=== PATIENT | female | born 1955 | race African-American/Black ===

== ENCOUNTER 2016-07-20 16:50 | Inpatient (IN) | payer OTHER ==
[~2016-07-20] VITALS: Ht 175.3 cm; Wt 80.2 kg
[2016-07-22] MEDS ORDERED: ATEN50TA PO (12:40)
[2016-07-22] MEDS ORDERED: SERO25TA PO (12:40)
[2016-07-22] MEDS ORDERED: VIST25CA PO (12:40)
[2016-07-22] MEDS ORDERED: MULTTAB67 PO (12:40)
[2016-07-22] MEDS ORDERED: HYDR-3516 PO (12:40)
[2016-07-22] MEDS ORDERED: B12-1CHW CHEW (12:40)
[2016-07-22] MEDS ORDERED: DICL75TA PO (12:40)
[2016-07-22] MEDS ORDERED: NEUR300C PO (12:40)
[2016-07-22] MEDS ORDERED: NEUR600T PO (12:40)
[2016-07-25] MEDS ORDERED: ROPIVACAINE 0.5% PF INJ 30 ML VIAL NB ONE (08:41)
[2016-07-25] MEDS ORDERED: VANCOMYCIN 1000 MG/NS 250 ML (for <70 kg) IV SCH ×2 (10:30)
[2016-07-25] MEDS ORDERED: TRANEXAMIC ACID 1 GM POST-OP IV SCH ×2 (10:30)
[2016-07-25] MEDS ORDERED: TRANEXAMIC ACID 1 GM PRIOR TO PROCEDURE IV SCH ×2 (10:30)
[2016-07-25] MEDS ORDERED: CHLORHEXIDINE GLUCONATE 4% SOLN 120 ML BTL TOP SCH (10:30)
[2016-07-25] MEDS ORDERED: ceFAZolin 2 GM PREMIX 50 ML IV SCH (10:30)
[2016-07-25 10:42] VITALS: BP 160/94; PULSE 65; RESP 20; TEMP 98; O2SAT 100
[2016-07-25 10:54] LABS: BLOOD, URINE NEG (NEG); COMMENT (UR) CATH-CULT NOT IND; CULTURE IF INDICATED CATH CULTURE NOT IND; GLUCOSE,URINE NEG (NEG); KETONE, URINE NEG (NEG); NITRITE,URINE NEG (NEG); PH, URINE 6.5 (5.0-8.5); SQUAMOUS EPITHELIAL CELL URINE <1 /hpf (0-5); TRANSITIONAL EPI CELLS, URINE <1 /hpf; URINE COLOR LIGHT-YELLOW (YELLW/STRAW)
[2016-07-25] MEDS ORDERED: INSULIN HUMAN REGULAR 1,000 UNITS/10 ML VIAL SQ PRN (11:00)
[2016-07-25] MEDS ORDERED: SODIUM CHLORID 0.9% 500 ML IV SCH (11:00)
[2016-07-25] MEDS ORDERED: METOPROLOL TARTRATE 25 MG TAB PO PRN (11:00)
[2016-07-25] MEDS ORDERED: LACTATED RINGER'S 1000 ML IV SCH (11:00)
--- NOTE | 2016-07-25 11:26 | RADRPT ---
EXAM DATE/TIME: 07/25/2016 10:19 [facility] COMPARISON: No previous studies available for comparison. INDICATIONS : Evaluate for pneumonia, pneumothorax or communicable disease. pre op for right knee surgery today. MEDICAL HISTORY : None. SURGICAL HISTORY : None. ENCOUNTER: Initial ACUITY: 1 day PAIN SCORE: 0/10 LOCATION: Bilateral chest FINDINGS: A single view of the chest demonstrates the lungs to be symmetrically aerated without evidence of mas s, infiltrate or effusion. The cardiomediastinal contours are unremarkable. Osseous structures are intact. CONCLUSION: No acute disease. Kali Wynn MD FACR on July 25, 2016 at 11:25 Board Certified Radiologist. This report was verified electronically.
[2016-07-25] MEDS ORDERED: GENTAMICIN SULFATE 80 MG/2 ML VIAL ONE (11:55)
[2016-07-25] MEDS ORDERED: MIDAZOLAM HCL 2 MG/2 ML VIAL ONE (12:20)
[2016-07-25] MEDS ORDERED: FAMOTIDINE 20 MG/2 ML VIAL ONE (12:20)
[2016-07-25] MEDS ORDERED: DEXAMETHASONE SOD PHOS 4 MG/ML VIAL ONE (12:21)
[2016-07-25] MEDS ORDERED: LACTATED RINGER'S 1000 ML INJ 1,000 ML IV ONE (12:57)
[2016-07-25] MEDS ORDERED: ONDANSETRON HCL 4 MG/2 ML VIAL IV PUSH ONE (12:57)
[2016-07-25] MEDS ORDERED: PROPOFOL 200 MG/20 ML AMP IV ONE (12:57)
[2016-07-25] MEDS ORDERED: NEOSTIGMINE 3 MG/3 ML SYR IV ONE (12:57)
--- NOTE | 2016-07-25 15:14 | PD.OP ---
Operative Report Preoperative Diagnosis: (1) Osteoarthritis of right knee Postoperative Diagnosis: (1) Osteoarthritis of right knee Procedure: Right Total Knee Arthroplasty Anesthesia: General and Regional Block Surgeon: Maxx Ortiz MD Mental Health Program Manager(s): Finesse HORN Operation and Findings: see dictation Maxx Ortiz MD Jul 25, 2016 15:14
[2016-07-25] MEDS ORDERED: ONDANSETRON HCL 4 MG/2 ML VIAL IVP PRN (15:15)
[2016-07-25] MEDS ORDERED: ALUMINUM/MAGNESIUM/SIMETH 30 ML CUP PO PRN (15:15)
[2016-07-25] MEDS ORDERED: Post-op Orders (for Pharmacy) MISC XX ONE (15:15)
[2016-07-25] MEDS ORDERED: BISACODYL 10 MG SUPP PR PRN (15:15)
[2016-07-25] MEDS ORDERED: oxyCODONE/ACETAMINOPHEN 5 MG/325 MG TAB PO PRN (15:15)
[2016-07-25] MEDS: PCA - TOTAL MG DILAUDID DELIVERED PER SHIFT OTHER SCH ×2 (15:15→21:50)
[2016-07-25] MEDS ORDERED: SODIUM CHLORIDE 0.9% FLUSH 5 ML FLUSH IVF PRN (15:15)
[2016-07-25] MEDS ORDERED: MISCELLANEOUS PHARMACY INFORMATION XX ONE (15:15)
[2016-07-25] MEDS ORDERED: NALOXONE HCL 0.4 MG/ML AMP IV PRN (15:15)
[2016-07-25] MEDS ORDERED: MISCELLANEOUS NURSING INFORMATION XX PRN (15:15)
[2016-07-25] MEDS ORDERED: *RESP: ALBUTEROL 2.5 MG/3 ML NEB (PRN) PERIprocedural Use ONLY NEB ONE (15:31)
[2016-07-25] MEDS ORDERED: *morphine SULFATE 8 MG/ML PERIprocedure ONLY ONE ×2 (15:38→16:08)
[2016-07-25] MEDS ORDERED: *LABETALOL HCL 100 MG/20 ML VIAL PERIprocedural Use ONLY ONE (15:38)
[2016-07-25] MEDS ORDERED: MORPHINE SULFATE 4 MG/ML INJ ONE (15:39)
[2016-07-25] MEDS ORDERED: fentaNYL CITRATE 250 MCG/5 ML AMP ONE (15:39)
[2016-07-25] MEDS ORDERED: DO NOT ADM ANY ANTICOAGULANT DRUGS XX PRN (15:45)
[2016-07-25] MEDS: HYDROmorphone HCL PCA 6 MG/30 ML IV SCH ×2 (15:50→18:12)
--- NOTE | 2016-07-25 15:57 | RADRPT ---
EXAM DATE/TIME: 07/25/2016 15:32 [facility] COMPARISON: CHEST SINGLE AP, July 25, 2016, 10:19. INDICATIONS : Post op right knee. MEDICAL HISTORY : None. SURGICAL HISTORY : None. ENCOUNTER: Initial ACUITY: 1 day PAIN SCORE: Non-responsive. LOCATION: Right knee FINDINGS: The patient is post right knee arthroplasty. No joint effusion is seen. No complication is evident. The hardware is in excellent position. CONCLUSION: Uncomplicated right knee arthroplasty. Candido Wynn MD on July 25, 2016 at 15:55 Board Certified Radiologist. This report was verified electronically.
[2016-07-25] MEDS ORDERED: *ENALAPRILAT 1.25 MG/ML VIAL PERIprocedural Use ONLY ONE ×2 (15:59→16:33)
[2016-07-25] MEDS: LACTATED RINGER'S 1000 ML INJ 1,000 ML IV SCH (16:04)
--- NOTE | 2016-07-25 16:58 | PD.CONS ---
[facility] By Dr. Ortiz Reason for Consult Medical Management Primary Care Physician Lucero Whitaker MD Diagnoses: (1) Osteoarthritis of right knee (2) Hypertension History of Present Illness The patient is a 61 year old female seen in PACU following right total knee arthroplasty. She reports significant pain in her right knee and also pain in her left knee. No other complaints at this time. Had a headache yesterday. No vision changes. Denies chest pain, dyspnea. Review of Systems Constitutional: DENIES: Fever, Chills, Night Sweats Eyes: DENIES: Blurred vision, Vision loss Ears, nose, mouth, throat: DENIES: Hearing loss Respiratory: DENIES: Cough, Wheezing, Sputum production, Shortness of breath Cardiovascular: DENIES: Chest pain, Palpitations, Dyspnea on Exertion, Lower Extremity Edema Gastrointestinal: DENIES: Abdominal pain, Constipation, Diarrhea, Nausea, Vomiting Genitourinary: DENIES: Urinary frequency, Urinary incontinence, Urgency, Hematuria, Dysuria, Nocturia Musculoskeletal: COMPLAINS OF: Joint pain, DENIES: Muscle aches Integumentary: DENIES: Pruritus, Rash Hematologic/lymphatic: DENIES: Bruising Neurologic: COMPLAINS OF: Headache Past Family Social History Allergies: Coded Allergies: No Known Allergies (Unverified , 07/25/16) Past Medical History Hypertension Arthritis Past Surgical History Hysterectomy Reported Medications See list Family History Hypertension Social History Smokes 1/2 ppd. Denies alcohol or illicit drug use. Physical Exam Vital Signs Vital Signs Date Time Temp Pulse Resp B/P Pulse Ox O2 Delivery O2 Flow Rate FiO2 07/25/16 16:45 82 14 168/98 94 Nasal Cannula 4 07/25/16 16:30 82 12 190/99 95 Nasal Cannula 4 07/25/16 16:15 83 16 173/94 95 Nasal Cannula 4 07/25/16 16:00 95 15 212/108 96 Nasal Cannula 4 07/25/16 15:50 15 07/25/16 15:45 81 16 188/102 95 Nasal Cannula 4 07/25/16 15:30 85 14 198/113 86 Nasal Cannula 4 07/25/16 15:26 98.5 82 15 188/112 84 Nasal Cannula 2 07/25/16 10:42 98.0 65 20 160/94 100 Physical Exam GENERAL: Well-nourished, well-developed female in no acute distress. Appears uncomfortable. HEENT: Normocephalic, atraumatic. Pupils equal, round and reactive. Extraocular movements intact. No scleral icterus. No injection or drainage. Oropharynx is clear. Mucous membranes are somewhat dry. CARDIOVASCULAR: Regular rate and rhythm without murmurs, gallops, or rubs. RESPIRATORY: Clear to auscultation. No wheezes, rales, or rhonchi. Breathing is non-labored. GASTROINTESTINAL: Abdomen soft, non-tender, nondistended. EXTREMITIES: No lower extremity edema. No calf tenderness. JOSE hose. Right leg in CPM machine. PSYCH: Alert and oriented x 3. Laboratory Laboratory Tests Test 07/25/16 07/25/16 10:25 10:40 Urine Color LIGHT-YELLOW Urine Turbidity CLEAR Urine pH 6.5 Urine Specific Switzer 1.006 Urine Protein NEG Urine Glucose (UA) NEG Urine Ketones NEG Urine Occult Blood NEG Urine Nitrite NEG Urine Bilirubin NEG Urine Urobilinogen LESS THAN 2.0 Urine Leukocyte Esterase MOD Urine RBC 1 Urine WBC 4 Urine Squamous Epithelial <1 Cells Urine Transitional Epithelial <1 Cells Microscopic Urinalysis Comment CATH-CULT NOT IND Blood Type B POSITIVE Antibody Screen NEGATIVE Blood Bank Comment Imaging Last Impressions Knee X-Ray 07/25/16 0000 Signed Impressions: Service Date/Time: Monday, July 25, 2016 15:32 - CONCLUSION: Uncomplicated right knee arthroplasty. Candido Wynn MD Chest X-Ray 07/25/16 0000 Signed Impressions: Service Date/Time: Monday, July 25, 2016 10:19 - CONCLUSION: No acute disease. Kali Wynn MD FACR Assessment and Plan Assessment and Plan 1. Osteoarthritis: Status post right total knee arthroplasty, POD #0. Management per orthopedic surgery. Continue pain control with Dilaudid CLUTCH MECHANIC. Continue bowel regimen. 2. Hypertension: Blood pressure is significantly elevated, likely secondary to pain. Has received IV Vasotec and IV labetalol. Will add IV hydralazine as needed. Continue atenolol. 3. DVT prophylaxis: Xarelto. Levi Kidd MD Jul 25, 2016 16:58
[2016-07-25] MEDS ORDERED: hydrOXYzine PAMOATE 25 MG CAP PO PRN (17:00)
[2016-07-25] MEDS ORDERED: hydrALAZINE HCL 20 MG/ML VIAL IV PUSH PRN (17:00)
[2016-07-25] MEDS ORDERED: *diphenhydrAMINE HCL 50 MG/ML VIAL PERIprocedural Use ONLY ONE (18:08)
[2016-07-25] MEDS ORDERED: ACETAMINOPHEN 325 MG TAB PO PRN (19:00)
[2016-07-25 19:23] VITALS: BP 134/77; PULSE 89; RESP 18; TEMP 99; O2SAT 99
[2016-07-25] MEDS ORDERED: ZOLPIDEM TARTRATE 5 MG TAB PO PRN (21:00)
[2016-07-25] MEDS: ceFAZolin 2 GM PREMIX 50 ML IV SCH (21:29)
[2016-07-25] MEDS: SODIUM CHLORIDE 0.9% FLUSH 5 ML FLUSH IVF SCH (21:30)
[2016-07-25] MEDS: GABAPENTIN 300 MG CAP PO SCH (21:30)
[2016-07-25 21:40] VITALS: RESP 16
[2016-07-25 23:45] VITALS: BP 105/49; PULSE 83; RESP 17; TEMP 99; O2SAT 97
[2016-07-26] VITALS (7 sets, daily range): BP systolic 125–152; BP diastolic 58–73; PULSE 79–85; RESP 16–18; TEMP 98.7–100.5; O2SAT 94–100
[2016-07-26] MEDS: ceFAZolin 2 GM PREMIX 50 ML IV SCH ×2 (01:49→09:46)
[2016-07-26] MEDS: HYDROmorphone HCL PCA 6 MG/30 ML IV SCH ×3 (02:45→20:08)
[2016-07-26] MEDS: GABAPENTIN 300 MG CAP PO SCH ×2 (04:39→20:08)
[2016-07-26] MEDS: LACTATED RINGER'S 1000 ML INJ 1,000 ML IV SCH ×2 (04:40→17:58)
[2016-07-26] MEDS: PCA - TOTAL MG DILAUDID DELIVERED PER SHIFT OTHER SCH ×3 (05:19→21:53)
[2016-07-26 06:15] LABS: HEMATOCRIT 34.3 % (35.0-46.0); REVIEW FLAG FINAL
--- NOTE | 2016-07-26 07:46 | PD.ORT.PN ---
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, but c/o pain Objective Vitals Vital Signs Date Time Temp Pulse Resp B/P Pulse Ox O2 Delivery O2 Flow Rate FiO2 07/26/16 03:40 98.9 83 17 136/73 100 07/25/16 23:45 99.0 83 17 105/49 97 07/25/16 21:40 16 07/25/16 19:23 99.0 89 18 134/77 99 07/25/16 19:00 93 13 152/77 95 Nasal Cannula 3 07/25/16 18:15 99.1 90 13 142/76 94 Nasal Cannula 3 07/25/16 18:12 15 07/25/16 18:00 85 15 139/81 96 Nasal Cannula 3 07/25/16 17:30 80 13 131/77 97 Nasal Cannula 4 07/25/16 17:00 85 12 180/93 94 Nasal Cannula 4 07/25/16 16:45 82 14 168/98 94 Nasal Cannula 4 07/25/16 16:30 82 12 190/99 95 Nasal Cannula 4 07/25/16 16:15 83 16 173/94 95 Nasal Cannula 4 07/25/16 16:00 95 15 212/108 96 Nasal Cannula 4 07/25/16 15:50 15 07/25/16 15:45 81 16 188/102 95 Nasal Cannula 4 07/25/16 15:30 85 14 198/113 86 Nasal Cannula 4 07/25/16 15:26 98.5 82 15 188/112 84 Nasal Cannula 2 07/25/16 10:42 98.0 65 20 160/94 100 I/O 07/25/16 07/25/16 07/25/16 07/26/16 07/26/16 07/26/16 07:00 15:00 23:00 07:00 15:00 23:00 Intake Total 1740 ml 588 ml 360 ml Output Total 710 ml 105 ml Balance 1030 ml 483 ml 360 ml Intake Oral 280 ml 360 ml IV Total 560 ml 588 ml Other 900 ml Output Urine Total 450 ml Drainage Total 210 ml 105 ml Estimated Blood Loss 50 ml Bladder Scan Volume Amount 658 ml # Voids 1 1 # Bowel Movements 0 0 Result Diagram: 07/26/16 0521 Objective Remarks Right lower extremity dressing and Italo wraps in place calve soft negative david's NVI Assessment & Plan Problem List: (1) Osteoarthritis of right knee (2) History of knee replacement procedure of right knee Assessment and Plan Right Total Knee Arthroplasty POD#1 Pain control Medical consult Physical therapy consult - weight bearing as tolerated DVT prophylaxis - Xarelto Plan for [facility] Maxx Ortiz MD Jul 26, 2016 07:46
[2016-07-26] MEDS: SODIUM CHLORIDE 0.9% FLUSH 5 ML FLUSH IVF SCH ×2 (09:00→20:08)
[2016-07-26] MEDS: MULTIVITAMIN TAB PO SCH (09:42)
[2016-07-26] MEDS: ATENOLOL 50 MG TAB PO SCH (09:42)
[2016-07-26] MEDS: oxyCODONE/ACETAMINOPHEN 5 MG/325 MG TAB PO PRN ×3 (09:45→17:56)
--- NOTE | 2016-07-26 10:16 | HHI.PR ---
Subjective Remarks Follow-up hypertension. Patient states that she is still having quite a bit of pain in the right leg, but less than yesterday. Denies chest pain or dyspnea. Objective Vitals Vital Signs Date Time Temp Pulse Resp B/P Pulse Ox O2 Delivery O2 Flow Rate FiO2 07/26/16 09:54 16 07/26/16 08:00 99.7 82 18 126/58 94 07/26/16 03:40 98.9 83 17 136/73 100 07/25/16 23:45 99.0 83 17 105/49 97 07/25/16 21:40 16 07/25/16 19:23 99.0 89 18 134/77 99 07/25/16 19:00 93 13 152/77 95 Nasal Cannula 3 07/25/16 18:15 99.1 90 13 142/76 94 Nasal Cannula 3 07/25/16 18:12 15 07/25/16 18:00 85 15 139/81 96 Nasal Cannula 3 07/25/16 17:30 80 13 131/77 97 Nasal Cannula 4 07/25/16 17:00 85 12 180/93 94 Nasal Cannula 4 07/25/16 16:45 82 14 168/98 94 Nasal Cannula 4 07/25/16 16:30 82 12 190/99 95 Nasal Cannula 4 07/25/16 16:15 83 16 173/94 95 Nasal Cannula 4 07/25/16 16:00 95 15 212/108 96 Nasal Cannula 4 07/25/16 15:50 15 07/25/16 15:45 81 16 188/102 95 Nasal Cannula 4 07/25/16 15:30 85 14 198/113 86 Nasal Cannula 4 07/25/16 15:26 98.5 82 15 188/112 84 Nasal Cannula 2 07/25/16 10:42 98.0 65 20 160/94 100 I/O 07/25/16 07/25/16 07/25/16 07/26/16 07/26/16 07/26/16 07:00 15:00 23:00 07:00 15:00 23:00 Intake Total 1740 ml 588 ml 360 ml Output Total 710 ml 105 ml Balance 1030 ml 483 ml 360 ml Intake Oral 280 ml 360 ml IV Total 560 ml 588 ml Other 900 ml Output Urine Total 450 ml Drainage Total 210 ml 105 ml Estimated Blood Loss 50 ml Bladder Scan Volume Amount 658 ml # Voids 1 1 # Bowel Movements 0 0 Result Diagram: 07/26/16 0521 Imaging Last Impressions Knee X-Ray 07/25/16 0000 Signed Impressions: Service Date/Time: Monday, July 25, 2016 15:32 - CONCLUSION: Uncomplicated right knee arthroplasty. Candido Wynn MD Chest X-Ray 07/25/16 0000 Signed Impressions: Service Date/Time: Monday, July 25, 2016 10:19 - CONCLUSION: No acute disease. Kali Wynn MD FACR Objective Remarks General: No acute distress. Heart: Regular rate and rhythm. No murmur. Lungs: Clear to auscultation bilaterally. No wheezes, rales, or rhonchi. Breathing is nonlabored. Abdomen: Soft, nontender, nondistended. Extremities: No lower extremity edema. Right leg in an immobilizer brace. Psych: Alert and oriented. Procedures 07/25/16 right total knee arthroplasty Urinary Catheter: No Vascular Central Line Catheter: No A/P Problem List: (1) Osteoarthritis of right knee ICD Code: M17.11 Status: Chronic (2) Hypertension ICD Code: I10 Status: Acute Assessment and Plan 1. Osteoarthritis: Status post right total knee arthroplasty, POD #1. Management per orthopedic surgery. 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 Continue bowel regimen. 2. Hypertension: Blood pressure control is improved. Was likely elevated postoperatively secondary to pain. Continue atenolol. 3. Tobacco abuse: Counseled to quit smoking. 4. DVT prophylaxis: Xarelto. Levi Kidd MD Jul 26, 2016 10:15
[2016-07-26] MEDS: RIVAROXABAN 10 MG TAB PO SCH (14:30)
[2016-07-26] MEDS: MAGNESIUM HYDROXIDE SUSP 30 ML CUP PO PRN (20:08)
[2016-07-26] MEDS: DOCUSATE SODIUM 100 MG CAP PO SCH (20:08)
[2016-07-27] VITALS (7 sets, daily range): BP systolic 129–145; BP diastolic 60–72; PULSE 67–81; RESP 16–17; TEMP 98.4–100; O2SAT 94–98
[2016-07-27] MEDS: LACTATED RINGER'S 1000 ML INJ 1,000 ML IV SCH ×3 (03:42→19:59)
[2016-07-27] MEDS: oxyCODONE/ACETAMINOPHEN 5 MG/325 MG TAB PO PRN ×4 (05:05→18:09)
[2016-07-27] MEDS: GABAPENTIN 300 MG CAP PO SCH ×2 (05:05→19:55)
[2016-07-27] MEDS: PCA - TOTAL MG DILAUDID DELIVERED PER SHIFT OTHER SCH ×2 (06:00→13:47)
[2016-07-27] MEDS: MAGNESIUM HYDROXIDE SUSP 30 ML CUP PO PRN (08:31)
[2016-07-27] MEDS: ATENOLOL 50 MG TAB PO SCH (08:31)
[2016-07-27] MEDS: DOCUSATE SODIUM 100 MG CAP PO SCH ×2 (08:32→19:54)
[2016-07-27] MEDS: MULTIVITAMIN TAB PO SCH (08:32)
[2016-07-27] MEDS: SODIUM CHLORIDE 0.9% FLUSH 5 ML FLUSH IVF SCH ×2 (08:32→19:59)
--- NOTE | 2016-07-27 11:32 | HHI.PR ---
Subjective Remarks Follow up hypertension. Patient states that her pain is well controlled today. Denies chest pain, dyspnea, nausea, vomiting, diarrhea, constipation. Objective Vitals Vital Signs Date Time Temp Pulse Resp B/P Pulse Ox O2 Delivery O2 Flow Rate FiO2 07/27/16 08:10 98.9 81 16 137/67 94 07/27/16 03:30 99.4 80 16 144/66 97 07/26/16 23:45 100.5 85 16 152/67 96 07/26/16 20:00 99.1 79 16 141/62 98 07/26/16 18:29 94 21 07/26/16 16:00 98.7 82 18 125/60 94 07/26/16 14:00 16 07/26/16 12:00 99.1 83 18 130/60 94 I/O 07/26/16 07/26/16 07/26/16 07/27/16 07/27/16 07/27/16 07:00 15:00 23:00 07:00 15:00 23:00 Intake Total 588 ml 1674 ml 1125 ml 697 ml Output Total 105 ml 180 ml 90 ml 100 ml Balance 483 ml 1494 ml 1035 ml 597 ml Intake Oral 840 ml 840 ml 240 ml IV Total 588 ml 834 ml 285 ml 457 ml Drainage Total 105 ml 180 ml 90 ml 100 ml # Voids 3 4 3 # Bowel Movements 0 0 0 Result Diagram: 07/26/16 0521 Imaging Last Impressions Knee X-Ray 07/25/16 0000 Signed Impressions: Service Date/Time: Monday, July 25, 2016 15:32 - CONCLUSION: Uncomplicated right knee arthroplasty. Candido Wynn MD Chest X-Ray 07/25/16 0000 Signed Impressions: Service Date/Time: Monday, July 25, 2016 10:19 - CONCLUSION: No acute disease. Kali Wynn MD FACR Objective Remarks General: No acute distress. Heart: Regular rate and rhythm. No murmur. Lungs: Clear to auscultation bilaterally. No wheezes, rales, or rhonchi. Breathing is nonlabored. Abdomen: Soft, nontender, nondistended. Extremities: No lower extremity edema. Psych: Alert and oriented. Procedures 07/25/16 right total knee arthroplasty Urinary Catheter: No Vascular Central Line Catheter: No A/P Problem List: (1) Osteoarthritis of right knee ICD Code: M17.11 Status: Chronic (2) Hypertension ICD Code: I10 Status: Acute Assessment and Plan 1. Osteoarthritis: Status post right total knee arthroplasty, POD #2. Management per orthopedic surgery. Continue pain control. Continue bowel regimen. 2. Hypertension: Blood pressure control is improved. Was likely elevated postoperatively secondary to pain. Continue atenolol. 3. Tobacco abuse: Counseled to quit smoking. 4. DVT prophylaxis: Xarelto. Discharge Planning Per orthopedic surgery. Levi Kidd MD Jul 27, 2016 11:31
[2016-07-27] MEDS: RIVAROXABAN 10 MG TAB PO SCH (14:00)
--- NOTE | 2016-07-27 18:43 | PD.ORT.PN ---
Subjective Post Op Day #: 2 Subjective Remarks Patient comfortable. Pain controlled. Family at bedside. Objective Vitals Vital Signs Date Time Temp Pulse Resp B/P Pulse Ox O2 Delivery O2 Flow Rate FiO2 07/27/16 15:28 98.4 67 17 129/60 98 07/27/16 13:10 98 21 07/27/16 12:00 99.6 73 16 145/72 95 07/27/16 08:10 98.9 81 16 137/67 94 07/27/16 03:30 99.4 80 16 144/66 97 07/26/16 23:45 100.5 85 16 152/67 96 07/26/16 20:00 99.1 79 16 141/62 98 I/O 07/26/16 07/26/16 07/26/16 07/27/16 07/27/16 07/27/16 07:00 15:00 23:00 07:00 15:00 23:00 Intake Total 588 ml 1674 ml 1125 ml 697 ml 300 ml Output Total 105 ml 180 ml 90 ml 100 ml 70 ml Balance 483 ml 1494 ml 1035 ml 597 ml 230 ml Intake Oral 840 ml 840 ml 240 ml 300 ml IV Total 588 ml 834 ml 285 ml 457 ml Drainage Total 105 ml 180 ml 90 ml 100 ml 70 ml # Voids 3 4 3 3 # Bowel Movements 0 0 0 1 Result Diagram: 07/26/16 0521 Procedures Right Total Knee Arthroplasty Objective Remarks Right lower extremity dressing C/D/I calve soft negative david's NVI Assessment & Plan Problem List: (1) Osteoarthritis of right knee (2) History of knee replacement procedure of right knee Assessment and Plan Right Total Knee Arthroplasty POD#2 Pain management - Percocet Medical consult Physical therapy consult - weight bearing as tolerated DVT prophylaxis - Xarelto D/C Planning - Home with [facility] F/U in [address] Ortiz or JUSTINA in office Finesse Riddle Jul 27, 2016 18:43
[2016-07-27] MEDS ORDERED: XARE10TA PO (18:48)
[2016-07-27] MEDS ORDERED: OXYC1TAB63 PO (18:48)
--- NOTE | 2016-07-27 18:50 | HHI.FF ---
Face to Face Verification Diagnosis: (1) History of knee replacement procedure of right knee Physical Therapy Gait training Knee: Total knee, Protocol: Right, Gait training, Full weight bearing Right LE Weight Bearing: WB as tolerated Right LE Range of Motion: Active Assistive ROM Left LE Weight Bearing: WB as tolerated Left LE Range of Motion: Active ROM I have seen patient Sisi Antoine on 07/27/16. My clinical findings support the need for the requested home health care services because: High risk of falls I certify that my clinical findings support that this patient is homebound because: Post-op weakness Unsteady gait/balance Finesse Riddle Jul 27, 2016 18:50
[2016-07-27] MEDS ORDERED: WALKER/ADULT/FO1 MIS (18:52)
[2016-07-28] MEDS: oxyCODONE/ACETAMINOPHEN 5 MG/325 MG TAB PO PRN ×3 (00:52→09:34)
[2016-07-28 04:00] VITALS: BP 119/56; PULSE 72; RESP 16; TEMP 98.6; O2SAT 93
[2016-07-28] MEDS: GABAPENTIN 300 MG CAP PO SCH (05:19)
[2016-07-28 07:35] VITALS: BP 132/68; PULSE 73; RESP 16; TEMP 98.6; O2SAT 94
[2016-07-28] MEDS: MULTIVITAMIN TAB PO SCH (07:56)
[2016-07-28] MEDS: ATENOLOL 50 MG TAB PO SCH (07:56)
[2016-07-28] MEDS: DOCUSATE SODIUM 100 MG CAP PO SCH (07:56)
[2016-07-28] MEDS: SODIUM CHLORIDE 0.9% FLUSH 5 ML FLUSH IVF SCH (07:59)
--- NOTE | 2016-07-28 11:41 | HHI.PR ---
Subjective Remarks Follow-up hypertension. Patient denies headache, blurred vision, chest pain, dyspnea, lightheadedness. Tooth that she feels ready to go home. Pain is well controlled. Objective Vitals Vital Signs Date Time Temp Pulse Resp B/P Pulse Ox O2 Delivery O2 Flow Rate FiO2 07/28/16 10:34 18 07/28/16 07:35 98.6 73 16 132/68 94 07/28/16 04:00 98.6 72 16 119/56 93 07/27/16 23:43 100.0 78 16 143/69 97 07/27/16 19:45 98.4 76 16 136/67 97 07/27/16 15:28 98.4 67 17 129/60 98 07/27/16 13:10 98 21 07/27/16 12:00 99.6 73 16 145/72 95 I/O 07/27/16 07/27/16 07/27/16 07/28/16 07/28/16 07/28/16 07:00 15:00 23:00 07:00 15:00 23:00 Intake Total 697 ml 300 ml 480 ml 240 ml Output Total 100 ml 70 ml Balance 597 ml 230 ml 480 ml 240 ml Intake Oral 240 ml 300 ml 480 ml 240 ml IV Total 457 ml Drainage Total 100 ml 70 ml # Voids 3 3 4 2 # Bowel Movements 0 1 0 0 Result Diagram: 07/26/16 0521 Imaging Last Impressions Knee X-Ray 07/25/16 0000 Signed Impressions: Service Date/Time: Monday, July 25, 2016 15:32 - CONCLUSION: Uncomplicated right knee arthroplasty. Candido Wynn MD Chest X-Ray 07/25/16 0000 Signed Impressions: Service Date/Time: Monday, July 25, 2016 10:19 - CONCLUSION: No acute disease. Kali Wynn MD FACR Objective Remarks General: No acute distress. Sitting up in a chair. Heart: Regular rate and rhythm. No murmur. Lungs: Clear to auscultation bilaterally. No wheezes, rales, or rhonchi. Breathing is nonlabored. Abdomen: Soft, nontender, nondistended. Extremities: No lower extremity edema. Psych: Alert and oriented. Procedures 07/25/16 right total knee arthroplasty Urinary Catheter: No Vascular Central Line Catheter: No A/P Problem List: (1) Osteoarthritis of right knee ICD Code: M17.11 Status: Chronic (2) Hypertension ICD Code: I10 Status: Acute Assessment and Plan 1. Osteoarthritis: Status post right total knee arthroplasty, POD #3. Management per orthopedic surgery. Continue pain control. Continue bowel regimen. 2. Hypertension: Blood pressure is borderline low. Has been well controlled. Was likely elevated postoperatively secondary to pain. Received atenolol this morning. 3. Tobacco abuse: Counseled to quit smoking. 4. DVT prophylaxis: Xarelto. Levi Kidd MD Jul 28, 2016 11:41
[2016-07-28 12:10] VITALS: BP 98/54; PULSE 65; RESP 16; TEMP 98.8; O2SAT 97
--- NOTE | 2016-07-30 15:06 | MP ---
cc: ALISSON GALEAS M.D. DATE OF SURGERY: 07/25/2016. PREOPERATIVE DIAGNOSIS: Right knee severe varus [id number] osteoarthritis. POSTOPERATIVE DIAGNOSIS: Right knee severe varus [id number] osteoarthritis. OPERATIVE PROCEDURE PERFORMED: Right total knee arthroplasty using [employer] Attune prosthesis, femoral size 6, tibial size 6 rotating platform with a 16 mm polyethylene and 38 mm patellar component. SURGEON: Alisson Galeas M.D. EMERGENCY MEDICAL TECHNICIAN BASIC SURGEON: JUSTINA Santos. ANESTHESIA: Regional block and general ESTIMATED BLOOD LOSS: 100 cc. DRAINS: One Hemovac. SPECIMEN: Bony fragments discarded. COMPLICATIONS: None known. INDICATIONS FOR THE PROCEDURE: Sisi Antoine is a 61-year-old female with severe debilitating itpa-ah-[id number] varus osteoarthritis, right greater than the left knee who presents for right total knee arthroplasty. Risks and benefits were thoroughly discussed and a detailed informed consent was obtained. NOTE: It should be noted that the junior administrative assistant, Finesse Riddle, is an advanced registered nurse practitioner who sub-specializes in orthopedics. His skill set was medically necessary for the performance of the operation. DESCRIPTION OF THE PROCEDURE IN DETAIL: The patient was given a block in the preop holding area and brought into the operating room and placed under general anesthetic. The right lower extremity was draped and prepped in the usual sterile fashion. IV antibiotics were given. Time-out was completed. The limb was exsanguinated and the tourniquet inflated to 300 mmHg. Slightly medial to midline, an incision was made and taken through the subcutaneous tissue. Hemostasis was obtained with the use of electrocautery. A medial high vastus splitting approach was used. The patella measured at 25 mm; it was trimmed back to 14.5 mm and sized for a size 38. A tissue protector was placed. The patella subluxed laterally. An intramedullary guide on the femur. There was significant [id number]-[id number] wear so we resected only 8 mm and used a 6 mm intramedullary guide, sized it to a size 6. Anterior and posterior chamfer cuts were made. A sulcus cut was made. The tibia subluxed anteriorly. Extra-medullary alignment guide for the tibia 0 mm cut on the medial aspect of the tibia which resulted in about a 16 mm cut laterally. Then proceeded with sizing to a size 6. We aligned our tibial cutting block and finishing cuts on the tibia and then trialed the femoral component with different polyethylenes and we went up to a size 16 which gave the best varus-valgus stability. It should be noted that we did release the medial collateral ligament of the tibia. At this point, we were satisfied with all of our components and made our final drill holes and placed all components on the field. We used pulse lavage and antibiotic irrigation and pressurized the bone cement into good position and then placed our polyethylene in our femoral component and residual cement was removed. Polyethylene of the patellar component was clamped into position. Residual cement was removed. We checked in deep flexion for any other cement and then let it harden in full extension with direct pressure and at ten minutes we let the tourniquet down for a total of 50 minutes and then we obtained hemostasis at the periphery and placed a drain deep and then again checked for any residual cement throughout the knee and none was identified. Irrigated out again with copious amounts of irrigation. Closed in layers with absorbable suture, subcuticular on the skin, Steri-Strips applied, sterile dressing applied. The patient was awakened and returned to the recovery room in stable condition. MD ISRAEL Newman/ROMI /3:36 PM /2:49 PM
--- NOTE | 2016-08-01 19:37 | HHI.DS ---
Discharge Summary Admission Date Jul 25, 2016 at 09:26 Discharge Date: Jul 28, 2016 Admitting Diagnosis Right Knee Severe Osteoarthritis Diagnosis: (1) Osteoarthritis of right knee (2) History of knee replacement procedure of right knee Procedures Right Total Knee Arthroplasty PE at Discharge Right lower extremity dressing C/D/I calve soft negative david's [facility] Hospital Course Patient is a 61-year-old female with severe debilitating right knee osteoarthritis. She has failed conservative management and is indicated for right total knee arthroplasty. Underwent preoperative clearance, surgical consent was signed, came in through same day surgery, underwent surgery without complications. She was maintained on 23 hours IV antibiotics. She was initiated with DVT prophylaxis. Medical consultation was obtained. Physical therapy consultation was obtained. She was transitioned from IV to PO medication. She did well during the hospitalization, did not have complications and on post-op day #3 was discharged. Labs and vital signs remained stable. She was discharged home with [facility] for continuation of rehabilitation. She was to continue on her standard medications, as well as, prescriptions for Percocet for pain management and Xarelto for DVT prophylaxis. Continue on standard regular diet. Follow-up schedule in the office in 2 weeks. Pt Condition on Discharge: Stable Discharge Disposition: Discharge Home Discharge Instructions Diet Instructions: As Tolerated, No Restrictions Activities You Can Perform: Weight Bearing as Finesse Anderson Aug 01, 2016 19:37
== END 2016-07-28 12:47 | disposition home health service (06) | DRG 470 ==
LOC: HSDI 07-25 09:26 → EDUNIT# 07-25 13:00 → N06B 07-25 19:42
PROVIDERS: ADMIT Orthopaedic Surgery Sports Medicine; ATTEND Orthopaedic Surgery Sports Medicine
PROC: 3E0T3CZ (ICD-10-PCS; 2016-07-25)
PROC: 0SRC0J9 Replacement of Right Knee Joint with Synthetic Substitute, Cemented, Open Approach (ICD-10-PCS; principal; 2016-07-25 12:56)
DX: M17.11 Unilateral primary osteoarthritis, right knee (principal); I10 Essential (primary) hypertension; F17.210 Nicotine dependence, cigarettes, uncomplicated
CPT/HCPCS: 71010; 73560; 81001; 85014; 85018; 86850; 86900; 86901; 94150; 94664; C1776; J0360; J0690; J1100; J1170; J1200; J1580; J2250; J2270; J2405; J2710; J2795; J3010; J3370; J7050; J7120; J7613; L1830; Q0177